=== PATIENT | male | born 1965 | race Caucasian/White ===

== ENCOUNTER 2018-09-16 04:58 | Day surgery (SDC) | payer BC ==
[2018-09-15 08:13] VITALS: BMI 27.2
--- NOTE | 2018-09-16 09:14 | HP ---
[facility]ellite [facility] - Chief Complaint Chief Complaint: right shoulder pain - Past Medical History Allergies/Adverse Reactions: Allergies Allergy/AdvReac Type Severity Reaction Status Date / Time No Known Allergies Allergy Verified 09/16/18 08:53 - Current Medications Current Medications: Home Medications Medication Instructions Recorded Gluc Mcclelland/Chondro Mcclelland A/Vit C/Mn 1 cap PO DAILY 09/15/18 [Glucosamine-Chondroitin Caps] Hydrocodone/Acetaminophen 1 each PO Q6H #30 tablet MDD 4 09/16/18 [Hydrocodone-Acetamin 5-325 mg] Satellite Physical Exam - Physical Examination Vital Signs: Vital Signs Period Temp Pulse Resp BP Sys/Segundo Pulse Ox Last 24 Hr 98.5 F 79 18 110/72 98 General Appearance: Well Nourished, Well Developed, Alert & Oriented x3 ENT: Clear Lung: Normal air movement Heart: Regular rate & rhythm Extremities: Other (right shoulder- + ttp, decr rom, + neer, + sawyer, + empty can, nvi MRI + large RCT, GH djd) Neurological: Intact, Alert, Oriented Satellite Impression/Plan - Impression/Plan Impression: right shoulder rct, GH OA Operative Procedure: right shoulder arthroscopy with SAD and possible RCR Date to be Performed: 09/16/18
[2018-09-16] MEDS ORDERED: MIDAZOLAM HCL 2 MG/2 ML SINGLE DOSE VIAL ONE ×2 (09:34)
[2018-09-16] MEDS ORDERED: ROPIVACAINE HCL 0.5% 30ML VIAL ONE (09:35)
[2018-09-16] MEDS ORDERED: PROPOFOL 20 ML ONE ×2 (10:39)
[2018-09-16] MEDS ORDERED: ceFAZolin SODIUM 1 GM VIAL IVPB ONE (11:45)
--- NOTE | 2018-09-16 13:04 | OP ---
Operative Note - Note: Operative Date: 09/16/18 Pre-Operative Diagnosis: right shoulder impingement syndrome, RTC tear Operation: right shoulder arthroscopy, subacromial decompression, distal clavicle excision, mini open RTC repair Implants: Arthrex Swivel lock x 3, fiber wire Surgeon: Santosh Shafer Set Up Worker: Gray Hernandez Anesthesiologist/THERMOSTAT MECHANIC: Jordy Adamson Anesthesia: General, Local Specimens Removed: shavings Estimated Blood Loss (mls): 75 Drains, Volume Out (mls): 0 Blood Volume Replaced (mls): 0 Fluid Volume Replaced (mls): 1,000 Operative Report Dictated: Yes
[2018-09-16 14:46] VITALS: TEMP 98
[2018-09-16] MEDS ORDERED: oxyCODONE HCL 5 MG TABLET PO PRN (14:54)
[2018-09-16] MEDS ORDERED: ONDANSETRON 4 MG/2 ML VIAL IVPUSH PRN (14:54)
[2018-09-16] MEDS ORDERED: LACTATED RINGERS SOLUTION 1,000 ML IV SCH (15:00)
[2018-09-16 16:13] VITALS: BP 120/70; PULSE 64
--- NOTE | 2018-09-16 18:12 | OP ---
DATE OF OPERATION: 09/16/2018 PREOPERATIVE DIAGNOSIS: Right shoulder rotator cuff tear and subacromial impingement syndrome. POSTOPERATIVE DIAGNOSIS: Right shoulder rotator cuff tear and subacromial impingement syndrome. PROCEDURE: Right shoulder arthroscopy, subacromial decompression, distal clavicle excision, and open rotator cuff repair. SURGEON: Claude Redding MD [employer] POLICE OFFICER: TEJA Arriaza ANESTHESIOLOGIST: Jordy Adamson CRNA ANESTHESIA: Right interscalene block with LMA anesthesia. DRAINS: None. COMPLICATIONS: None. BLOOD LOSS: Minimal. BLOOD GIVEN: None. FLUID REPLACEMENT: 1000 mL PlasmaLyte. INDICATION: This patient is a 53-year-old male with preoperative diagnosis of right shoulder acute rotator cuff tear as well as subacromial impingement syndrome. After understanding the potential risk, complications, alternatives, and benefits of surgical versus nonsurgical treatment. The patient elected to proceed with the procedure. DESCRIPTION OF PROCEDURE: The patient was brought into the operating room, peripheral IV placed and IV sedation given. A right interscalene block was performed, and LMA anesthesia was induced. He was placed into the beach chair position with ample padding throughout. The right upper extremity was prepped and draped in a sterile fashion. The bony landmarks were marked out with a marking pen and posterior portal established. A diagnostic glenohumeral arthroscopy was performed. The patient was seen to have a complete full thickness tear of the rotator cuff easily evident from the glenohumeral side. The rest of the glenohumeral structures looked normal. A lateral portal was established under direct visualization. The patient had a tremendous amount of subacromial and subdeltoid bursitis. A soft tissue bursectomy/extensive debridement was done with the Arthrocare wand and the straight shaver. This exposed a moderate sized subacromial and distal clavicular bony spur. Both of these were taken down with a 5.5-mm oval bur, fine-tuned in reverse, and with a straight shaver. All debris was removed, and small ridge was removed. The undersurface of the acromion and distal clavicle looked good. Top surface of the rotator cuff was then directly visualized. Once the rest of the bursa was removed, this revealed a large complex tear of the rotator cuff. There was a crescent component. There was a delamination component and a radial component. I cleaned it up with the Arthrocare wand and the straight shaver. In addition, there was a large bony ridge on the humeral head. This was removed with the bur and then the shaver. I was able to directly visualize the entire tear. I was able to mobilize it with the Arthrocare wand, grasp it and feel that it was a good quality. Next, I converted to a mini-open rotator cuff repair approach. I extended the lateral arthroscopy portal by about 1.5 inches superior to the edge of the acromion. Bovie was used for subcutaneous hemostasis. A Gelpi retractor was placed into the wound. I was then able to further mobilize the rotator cuff with my finger and make sure there was no other adhesive bursitis. I then did the deltoid splitting approach where the sutures were coming out and put in the Daysi retractor with medium blades. This exposed the humeral head and the rotator cuff tear. We had already placed with the Incuvo needle passer 7 FiberWires. I then incorporated 3 FiberWires into the posterior Arthrex SwiveLock [place] and put it down into the humeral head. This brought down about 50% of the rotator cuff tear. I then used the central 4 tails in another SwiveLock and the anterior 4 tails in a third SwiveLock bringing it down into different portions of the humeral head. Once all 3 SwiveLock anchors were down, there was a complete rotator cuff repair. It completely covered the head. I was able to move the head as a unit with the rotator cuff. We got complete coverage and overall was quite happy with the repair incorporating all of the delaminated radial and crescent components. The area was copiously irrigated and washed out and closing done. Closure was done with 2-0 Vicryl in the deltoid fascial layer and the deep adipose layer. The deep dermal layer was closed with 2-0 Vicryl sutures. Final skin reapproximation was done with a running subcuticular 3-0 V-Loc suture. The posterior portal was closed with 3-0 nylon. The area was then washed and dried, covered with SwiftSet Glue, Aquacel dressing. He was placed into a shoulder immobilizer, extubated. There were no complications during the case. Total operative time was about 50 minutes. He was brought to the ambulatory recovery room in stable condition. CLAUDE REDDING M.D. [id number]
--- NOTE | 2018-09-18 19:18 | PATH ---
Surgical Pathology Report Patient Name: ARMANDO BANKS Med. Rec. #: [id number] /Age/Gender: 1965 (Age: 53) / M Account: [id number] Location: [facility] SURGICAL Taken: 09/16/2018 Received: 09/17/2018 Reported: 09/18/2018 Physicians: Santosh Shafer M.D. Specimen(s) Received RIGHT SHOULDER SHAVINGS Clinical History Right rotator cuff tear and impingement syndrome Final Diagnosis SHOULDER SHAVINGS, RIGHT, ARTHROSCOPY, ROTATOR CUFF REPAIR: FRAGMENTS OF BENIGN CARTILAGE, DENSE FIBROCONNECTIVE TISSUE, ADIPOSE TISSUE, AND SKELETAL MUSCLE. Electronically Signed Lauren De Luna M.D. Gross Description Received in formalin, labeled "right shoulder shavings," is a 5.0 x 4.3 x 0.4 cm. aggregate of fiore-yellow soft tissue fragments. A representative personal service portion is submitted in one cassette. /09/17/2018 saudi09/17/2018
== END 2018-09-16 15:05 | disposition home or self-care (01) ==
LOC: JASU-SURG 04:58
PROVIDERS: ATTEND Orthopaedic Surgery
PROC: 0LM10ZZ Reattachment of Right Shoulder Tendon, Open Approach (ICD-10-PCS; 2018-09-16)
PROC: 0RNJ4ZZ Release Right Shoulder Joint, Percutaneous Endoscopic Approach (ICD-10-PCS; principal; 2018-09-16 10:30)
PROC: 0PB94ZZ Excision of Right Clavicle, Percutaneous Endoscopic Approach (ICD-10-PCS; 2018-09-16 10:30)
DX: M75.101 Unspecified rotator cuff tear or rupture of right shoulder, not specified as traumatic (principal); M75.41 Impingement syndrome of right shoulder
CPT/HCPCS: 88304-TC; 94760

== ENCOUNTER 2021-06-15 04:26 | Day surgery (SDC) | payer BC ==
[2021-06-12 16:39] VITALS: BMI 26.6
[2021-06-15] MEDS ORDERED: IOHEXOL 180 MG/1 ML ML IJ ONE ×2 (12:08→12:14)
[2021-06-15] MEDS ORDERED: LIDOCAINE HCL 1% PRESERVATIVE FREE - 30ML VIAL IJ ONE ×3 (12:08→12:18)
[2021-06-15] MEDS ORDERED: DEXAMETHASONE SOD PHOSPHATE 10 MG/1 ML VIAL IVPUSH ONE ×2 (12:08→12:14)
[2021-06-15 12:42] VITALS: BP 124/84; PULSE 73; TEMP 97.7
== END 2021-06-15 12:48 | disposition home or self-care (01) ==
LOC: JASU-SURG 04:26
PROVIDERS: ATTEND Pain Medicine Pain Medicine
PROC: 3E0R33Z Introduction of Anti-inflammatory into Spinal Canal, Percutaneous Approach (ICD-10-PCS; 2021-06-15)
PROC: 3E0R3BZ Introduction of Anesthetic Agent into Spinal Canal, Percutaneous Approach (ICD-10-PCS; principal; 2021-06-15 10:00)
DX: M54.16 Radiculopathy, lumbar region (principal)
CPT/HCPCS: 76000-TC-FY; J1100